=== PATIENT | male | born 1950 | race Caucasian/White ===

== ENCOUNTER 2017-02-14 23:01 | Emergency (ER) | payer MEDICARE ==
[~2017-02-14] VITALS: Ht 188 cm; Wt 72.6 kg
--- NOTE | 2017-02-14 23:13 | NUR ---
PT WALKED INTO ER C/O [facility] HR A[facility], LACERATION ABOVE RT ELBOW, -LOC, +ETOH, PT IS ALERT, ORIENTED X 4, NO RESP DISTRESS NOTED OR REPORTED UPON ASSESSMENT... MD AT BED SIDE..
[2017-02-14] MEDS ORDERED: CEPHALEXIN MONOHYDRATE 500 MG CAPSULE PO ONE (23:15)
[2017-02-14] MEDS ORDERED: LIDOCAINE 1%-EPI 1:100,000 20 ML VIAL TP ONE (23:15)
[2017-02-14] MEDS ORDERED: TDAP DIPH,PERTUSS,TET VAC/PF 0.5 ML DISP.SYRIN IM ONE ×2 (23:15→23:36)
[2017-02-14] MEDS ORDERED: SODIUM BICARBONATE 4.2 % (NEUT) 5 ML VIAL TP ONE (23:15)
[2017-02-14] MEDS ORDERED: PRAV20TA PO (23:28)
[2017-02-14] MEDS ORDERED: METO25TA6 PO (23:28)
[2017-02-14] MEDS ORDERED: ASPI81TA31 PO (23:28)
[2017-02-14] MEDS ORDERED: LIDOCAINE 1%-EPI 1:100,000 20 ML VIAL ONE (23:36)
[2017-02-14] MEDS ORDERED: CEPHALEXIN MONOHYDRATE 500 MG CAPSULE ONE (23:36)
--- NOTE | 2017-02-15 00:38 | NUR ---
Patient discharged to home in stable conditon. Written and verbal after care instructions given. Patient verbalizes understanding of instructions. Pt walked out of ER unassisted with belongings at side...
[2017-02-15 00:54] VITALS: BP 125/75
== END 2017-02-15 00:55 | disposition home or self-care (01) ==
LOC: ER 23:03
DX: S41.111A Laceration without foreign body of right upper arm, initial encounter (principal); E78.5 Hyperlipidemia, unspecified; I10 Essential (primary) hypertension; F10.20 Alcohol dependence, uncomplicated; Z79.82 Long term (current) use of aspirin; Z95.818 Presence of other cardiac implants and grafts; W18.40XA Slipping, tripping and stumbling without falling, unspecified, initial encounter; Y93.89 Activity, other specified; Y99.8 Other external cause status; Y92.89 Other specified places as the place of occurrence of the external cause
CPT/HCPCS: 12002; 90471; 90715; 99283; A4663; J3490; A4217

== ENCOUNTER 2017-02-26 12:46 | Emergency (ER) | payer MEDICARE ==
[~2017-02-26] VITALS: Ht 188 cm; Wt 83.9 kg
[~2017-02-26 12:46] MED LIST: ASPI81TA31 PO; METO25TA6 PO; PRAV20TA PO
--- NOTE | 2017-02-26 13:28 | NUR ---
Patient discharged to home in stable conditon. Written and verbal after care instructions given. Patient verbalizes understanding of instructions.pt walks in steady gait, sutures not removed by md, too early
== END 2017-02-26 13:29 | disposition home or self-care (01) ==
LOC: ER 12:46
DX: S61.411D Laceration without foreign body of right hand, subsequent encounter (principal); I10 Essential (primary) hypertension; I25.10 Atherosclerotic heart disease of native coronary artery without angina pectoris; E78.5 Hyperlipidemia, unspecified; F10.20 Alcohol dependence, uncomplicated; Z95.818 Presence of other cardiac implants and grafts; Z79.82 Long term (current) use of aspirin; X58.XXXD Exposure to other specified factors, subsequent encounter; Y92.89 Other specified places as the place of occurrence of the external cause; Y99.8 Other external cause status
CPT/HCPCS: A4663

== ENCOUNTER 2017-03-02 09:00 | Emergency (ER) | payer MEDICARE ==
[~2017-03-02] VITALS: Ht 188 cm; Wt 72.6 kg
== END 2017-03-02 09:17 | disposition home or self-care (01) ==
LOC: ER 09:00
DX: S41.111D Laceration without foreign body of right upper arm, subsequent encounter (principal); Z48.02 Encounter for removal of sutures; I10 Essential (primary) hypertension; I25.10 Atherosclerotic heart disease of native coronary artery without angina pectoris; E78.5 Hyperlipidemia, unspecified; Z95.5 Presence of coronary angioplasty implant and graft; Z79.82 Long term (current) use of aspirin